=== PATIENT | male | born 1970 ===

== ENCOUNTER 2019-04-14 21:37 | Emergency (ER) | payer OTHER ==
[~2019-04-14] VITALS: Ht 167.6 cm; Wt 112.5 kg
[2019-04-14] MEDS ORDERED: AVAPRO75 MG (21:44)
[2019-04-14] MEDS ORDERED: ASPIRIN325 MG (21:44)
== END 2019-04-15 04:56 | disposition home or self-care (01) ==
LOC: ER 21:37
DX: R42 Dizziness and giddiness (principal)